=== PATIENT | female | born 1945 | race Caucasian/White ===

== ENCOUNTER 2021-07-21 11:36 | Emergency (ER) | payer MEDICARE ==
[~2021-07-21] VITALS: Ht 157.5 cm; Wt 79.5 kg
[2021-07-21 11:40] VITALS: BP 199/116
--- NOTE | 2021-07-21 11:52 | NUR ---
pt requesting to come back to room with her. pt informed our policy is all visitors have to be either vaccinated or have a negative covid swab test result with them. pt states visitor is not vaccinated and does not have a negative test and pt is refusing to be seen if cannot come back with her. pt is informed that severe consequences can occur if she leaves ama up to and including . sofie strickland present as well for this conversation. pt states she is aware she has a life threatening condition and left because was not allowed back. pharmacist in charge owner debby made aware.
== END 2021-07-21 11:57 | disposition left against medical advice (07) ==
LOC: ER 11:36
DX: I48.91 Unspecified atrial fibrillation (principal); I10 Essential (primary) hypertension; R00.2 Palpitations; R45.1 Restlessness and agitation; Z90.89 Acquired absence of other organs; Z98.890 Other specified postprocedural states
CPT/HCPCS: 93005; 99291